=== PATIENT | male | born 1995 ===

== ENCOUNTER → 2018-10-15 | Outpatient (REF) | payer OTHER ==
[~2018-10-15] MED LIST: ACY30T TP; ACYC15OI TP; AZIT-17 PO; FLUT16SP19 NS; METH18TA11 PO; TYPH1CAP7 PO; VALA500T63 PO
== END ==
LOC: ZZSENDIN 17:07
PROVIDERS: ATTEND Family Medicine
DX: N41.0 Acute prostatitis (principal)
CPT/HCPCS: 87088; 87491; 87591